=== PATIENT | male | born 1940 | race Caucasian/White ===

== ENCOUNTER 2017-06-13 05:43 | Day surgery (SDC) | payer MEDICARE, BC ==
[2017-06-06 11:21] LABS: MEAN CORPUSCULAR HGB CONC 32.2 % (33.0-36.5); MEAN CORPUSCULAR VOLUME 83.9 FL (78-98); MEAN PLATELET VOLUME 8.1 FL (7.4-10.4); PRE OP HEMATOCRIT 35.5 % (42.0-52.0); PRE OP HEMOGLOBIN 11.4 g/dL (14.0-17.9); PRE OP PLATELET COUNT 204 X10'3 (140-440); RED BLOOD COUNT 4.23 X10'6 (4.70-6.10); RED CELL DISTRIBUTION WIDTH 15.3 % (11.5-14.5)
[2017-06-06 11:28] LABS: CLARITY,URINE CLEAR (Clear); COLOR,URINE YELLOW (Yellow); GLUCOSE, URINE NEGATIVE (Neg); KETONES,URINE NEGATIVE (Neg); LEUKOCYTE ESTERASE ,URINE NEGATIVE (Neg); NITRITES, URINE NEGATIVE (Neg); OCCULT BLOOD,URINE LARGE (Neg); PH,URINE 5.5 (4.8-8.0); PROTEIN,URINE 100 mg/dl (Neg); UROBILINOGEN,URINE 0.2 E.U/dL (0.2-1.0)
[2017-06-06 11:31] LABS: UA COLLECTION TYPE NON-SPECIFIED
[2017-06-06 11:37] LABS: HEMOGLOBIN A1C 6.5 % (4.5-6.2)
[2017-06-06 11:38] LABS: ALBUMIN 3.2 G/DL (3.4-5.0); ALBUMIN/GLOBULIN RATIO 0.8 (1.1-1.5); ALKALINE PHOSPHATASE 85 IU/L (46-116); BLOOD UREA NITROGEN 39 MG/DL (7-18); BUN/CREATININE RATIO 8.7 (5.4-32.0); CALCIUM 8.8 MG/DL (8.5-10.1); CHLORIDE 109 MMOL/L (99-107); CREATININE 4.48 MG/DL (0.60-1.10); PRE OP ALT 23 U/L (30-65); PRE OP ANION GAP 11 (8-16); PRE OP AST 18 U/L (10-37); PRE OP BILIRUB, TOTAL 0.4 MG/DL (0.0-1.0); PRE OP GLUCOSE 177 MG/DL (70-104); PRE OP POTASSIUM 4.7 MMOL/L (3.4-5.1); PRE OP SODIUM 144 MMOL/L (135-145); TOTAL CARBON DIOXIDE 24.1 MMOL/L (24-32); TOTAL PROTEIN 7.2 G/DL (6.4-8.2); eGFR 13 ML/MIN
[2017-06-06 11:47] LABS: ANISOCYTOSIS 1+; HYPOCHROMASIA 1+; MICROCYTOSIS 1+; PLATELET ESTIMATE NORMAL; POIKILOCYTOSIS FEW; TOTAL CELLS COUNTED 100
[2017-06-06 11:53] LABS: MUCUS STRANDS FEW /LPF (Neg); SQUAMOUS EPITHELIAL CELL,UR FEW /LPF (FEW)
[2017-06-06 11:58] LABS: BACTERIA,URINE NONE SEEN /HPF (Neg); WBC,URINE 0-4 /HPF (0-4)
[~2017-06-13] VITALS: Ht 177.8 cm; Wt 104.1 kg
[2017-06-13] VITALS (8 sets, daily range): BP systolic 153–201; BP diastolic 88–101
[~2017-06-13 05:43] MED LIST: ASPI-1009 PO; ATOR80TA PO; CHOL100024 PO; CHOL10008 PO; EPOE10003 SQ; INSU100C4 SQ; LANTUS SQ; OMEG1CAP54 PO; OMEP-84 PO; cefazolin/dext.iso 2gm/50ml 50 ML IV ONE; famotidine 20mg tablet PO ONE; ringers solution, lacted 1,000 ML IV SCH
[2017-06-13] MEDS ORDERED: epiNEPHrine 1 mg/ml inj ONE (06:52)
[2017-06-13] MEDS ORDERED: ceFAZolin 1000mg inj ONE (06:52)
[2017-06-13] MEDS ORDERED: heparin sodium, porcine/PF 100unit/ml 5ML syringe ONE ×2 (06:52→06:53)
[2017-06-13] MEDS ORDERED: mupirocin 2% ointment 22GM ONE (06:53)
[2017-06-13] MEDS ORDERED: BUPIVAcaine/PF 2.5 mg/ml (0.25%) 30ml vial ONE (06:53)
[2017-06-13] MEDS ORDERED: sevoflurane 250ml liquid IH ONE (08:10)
[2017-06-13] MEDS ORDERED: midazolam 2 mg/2 ml injection ONE (08:13)
[2017-06-13] MEDS ORDERED: fentaNYL/PF 50MCG/1 ML 2ML syringe ONE (08:13)
[2017-06-13] MEDS ORDERED: rocuronium 10mg/ml inj IV ONE (08:26)
[2017-06-13] MEDS ORDERED: etomidate 2mg/ml inj. ONE (08:30)
[2017-06-13] MEDS ORDERED: ondansetron/PF 4mg/2ml inj ONE (08:44)
[2017-06-13] MEDS ORDERED: ringers solution, lacted 1,000 ML IV SCH (08:51)
[2017-06-13] MEDS ORDERED: labetalol 5mg/ml 20ml inj. IV PRN (08:55)
[2017-06-13] MEDS ORDERED: hydrALAZINE 20mg/ml inj. IV PRN (08:55)
[2017-06-13] MEDS ORDERED: morphine sulfate 8 MG/ML SYRINGE IV PRN ×2 (08:55)
[2017-06-13] MEDS ORDERED: fentaNYL/PF 50MCG/1 ML 2ML syringe IV PRN ×2 (08:55)
[2017-06-13] MEDS ORDERED: ondansetron/PF 4mg/2ml inj IV PRN (08:55)
[2017-06-13] MEDS ORDERED: labetalol 5mg/ml 20ml inj. IV ONE (08:58)
[2017-06-13] MEDS ORDERED: labetalol 20mg/4ml (5mg/ml) syringe IV PRN (09:00)
[2017-06-13] MEDS ORDERED: glycopyrrolate 0.2mg/ml inj ONE (09:09)
== END 2017-06-13 10:40 | disposition home or self-care (01) ==
LOC: PAS 05:43
PROVIDERS: ATTEND Surgery
DX: I12.9 Hypertensive chronic kidney disease with stage 1 through stage 4 chronic kidney disease, or unspecified chronic kidney disease (principal); N18.6 End stage renal disease; E11.22 Type 2 diabetes mellitus with diabetic chronic kidney disease; N40.0 Benign prostatic hyperplasia without lower urinary tract symptoms; I71.4 Abdominal aortic aneurysm, without rupture; G47.30 Sleep apnea, unspecified; E66.3 Overweight; G47.33 Obstructive sleep apnea (adult) (pediatric); Z87.891 Personal history of nicotine dependence; Z98.890 Other specified postprocedural states; Z88.6 Allergy status to analgesic agent; Z90.5 Acquired absence of kidney; Z68.32 Body mass index [BMI] 32.0-32.9, adult; Z79.82 Long term (current) use of aspirin; Z79.4 Long term (current) use of insulin
CPT/HCPCS: 36415; 49324; 80053; 81001; 82948; 83036; 85025; 93005; A6449; C1750; C1758; J0171; J0690; J1642; J2250; J2405; J3010; J3490; J7030; J7120; A7000

== ENCOUNTER 2019-06-30 11:08 | Day surgery (SDC) | payer MEDICARE, BC ==
[~2019-06-30] VITALS: Ht 177.8 cm; Wt 102.6 kg
[~2019-06-30 11:08] MED LIST changes: -cefazolin/dext.iso 2gm/50ml 50 ML IV ONE; -famotidine 20mg tablet PO ONE; -ringers solution, lacted 1,000 ML IV SCH
[2019-06-30 11:40] VITALS: BP 166/108
[2019-06-30] MEDS ORDERED: normal saline 1000ml 1,000 ML IV PRN (11:40)
[2019-06-30] MEDS ORDERED: albumin 25% 100mL bottle x 1 IV PRN (11:40)
[2019-06-30] MEDS ORDERED: DOCU-264 PO (11:49)
[2019-06-30] MEDS ORDERED: INSU100V9 SQ (11:49)
[2019-06-30] MEDS ORDERED: fentaNYL/PF 50MCG/1 ML 2ML syringe IV PRN (13:25)
[2019-06-30] MEDS ORDERED: heparin 1,000 units/ml 10ml inj ICATH ONE (13:25)
[2019-06-30] MEDS ORDERED: midazolam 2 mg/2 ml injection IV PRN (13:25)
[2019-06-30] MEDS ORDERED: LIDOcaine 1%/PF 5ML 10 MG/ML VIAL SQ ONE (13:25)
[2019-06-30] MEDS ORDERED: LIDOcaine 1%/PF 5ML 10 MG/ML VIAL ONE (13:33)
[2019-06-30] MEDS ORDERED: midazolam 2 mg/2 ml injection ONE (13:33)
[2019-06-30] MEDS ORDERED: heparin 1,000unit/ml 10ml vial 10 ML ONE (13:33)
[2019-06-30] MEDS ORDERED: fentaNYL/PF 50MCG/1 ML 2ML syringe ONE (13:33)
[2019-06-30 14:57] VITALS: BP 149/94
[2019-06-30 15:12] VITALS: BP 149/94
[2019-06-30 15:27] VITALS: BP 155/74
[2019-06-30 15:42] VITALS: BP 159/78
== END 2019-06-30 16:05 | disposition home or self-care (01) ==
LOC: SSTAY O 11:08
PROVIDERS: ATTEND Radiology Diagnostic Radiology
DX: E11.22 Type 2 diabetes mellitus with diabetic chronic kidney disease (principal); N18.9 Chronic kidney disease, unspecified; E66.01 Morbid (severe) obesity due to excess calories; Z68.32 Body mass index [BMI] 32.0-32.9, adult; Z79.82 Long term (current) use of aspirin; Z79.4 Long term (current) use of insulin; Z79.899 Other long term (current) drug therapy
CPT/HCPCS: 36558; 76937; 77001; 99152; 99153; C1750; C1769; C1894; J1644; J2250; J3010; J7030; A9270

== ENCOUNTER 2020-03-03 12:30 | Day surgery (SDC) | payer MEDICARE, BC ==
[~2020-03-03] VITALS: Ht 177.8 cm; Wt 99.9 kg
[~2020-03-03 12:30] MED LIST changes: +DOCU-264 PO; -EPOE10003 SQ; +INSU100V9 SQ; -LANTUS SQ
[2020-03-03] MEDS ORDERED: normal saline 1000ml 1,000 ML IV SCH (12:55)
[2020-03-03] MEDS ORDERED: AMIN30LI28 PO (13:40)
[2020-03-03] MEDS ORDERED: LORA10TA7 PO (13:40)
[2020-03-03] MEDS ORDERED: SENN15TA PO (13:40)
[2020-03-03] MEDS ORDERED: CALC0.5C2 PO (13:40)
[2020-03-03] MEDS ORDERED: FURO80TA3 PO (13:40)
[2020-03-03] MEDS ORDERED: FERR28TA PO (13:40)
[2020-03-03] MEDS ORDERED: CALC667T8 PO (13:40)
[2020-03-03 13:42] VITALS: BP 127/73
[2020-03-03] MEDS ORDERED: heparin 1,000unit/ml 10ml vial 10 ML ONE (13:46)
[2020-03-03] MEDS ORDERED: LIDOcaine 1%/PF 5ML 10 MG/ML VIAL ONE (13:46)
[2020-03-03] MEDS ORDERED: midazolam 2 mg/2 ml injection ONE ×2 (13:46→14:09)
[2020-03-03] MEDS ORDERED: fentaNYL/PF 50MCG/1 ML 2ML syringe ONE ×2 (13:47→14:10)
[2020-03-03 14:15] VITALS: BP 127/73
[2020-03-03 14:30] VITALS: BP 131/79
[2020-03-03 14:45] VITALS: BP 116/73
[2020-03-03 15:00] VITALS: BP 116/73
== END 2020-03-03 15:15 | disposition home or self-care (01) ==
LOC: SSTAY O 12:30
PROVIDERS: ATTEND Radiology Diagnostic Radiology
DX: T85.691A Other mechanical complication of intraperitoneal dialysis catheter, initial encounter (principal); E11.22 Type 2 diabetes mellitus with diabetic chronic kidney disease; N18.9 Chronic kidney disease, unspecified; Z85.528 Personal history of other malignant neoplasm of kidney; Z79.899 Other long term (current) drug therapy; Z79.4 Long term (current) use of insulin; Z90.5 Acquired absence of kidney; Y83.8 Other surgical procedures as the cause of abnormal reaction of the patient, or of later complication, without mention of misadventure at the time of the procedure; Y92.89 Other specified places as the place of occurrence of the external cause
CPT/HCPCS: 36558; 76937; 77001; 99152; 99153; C1750; C1769; J1644; J2250; J3010

== ENCOUNTER 2020-03-08 07:11 | Day surgery (SDC) | payer MEDICARE, BC ==
[~2020-03-08] VITALS: Ht 177.8 cm; Wt 97.0 kg
[~2020-03-08 07:11] MED LIST changes: +AMIN30LI28 PO; +CALC0.5C2 PO; +CALC667T8 PO; -CHOL100024 PO; +FERR28TA PO; +FURO80TA3 PO; +LORA10TA7 PO; +SENN15TA PO; +famotidine 20mg tablet PO ONE; +normal saline 1000ml 1,000 ML IV SCH
[2020-03-08] MEDS ORDERED: cefazolin/dext.iso 2gm/50ml 50 ML IV ONE (07:20)
[2020-03-08 08:17] VITALS: BP 141/79
[2020-03-08] MEDS ORDERED: ringers solution, lacted 1,000 ML IV SCH (09:07)
[2020-03-08] MEDS ORDERED: hydrALAZINE 20mg/ml inj. IV PRN (09:10)
[2020-03-08] MEDS ORDERED: morphine 2 MG/ML inj. syringe IV PRN (09:10)
[2020-03-08] MEDS ORDERED: ondansetron/PF 4mg/2ml inj IV PRN (09:10)
[2020-03-08] MEDS ORDERED: labetalol 20mg/4ml (5mg/ml) syringe IV PRN (09:10)
[2020-03-08] MEDS ORDERED: morphine 4 MG/ML inj SYRINge IV PRN (09:10)
[2020-03-08] MEDS ORDERED: fentaNYL/PF 50MCG/1 ML 2ML syringe IV PRN ×2 (09:10)
[2020-03-08 09:12] LABS: PRE OP PARTIAL THROMB. TIME 28 SECONDS (22-32)
[2020-03-08 09:13] LABS: BASOPHILS # (AUTO) 0.1 X10'3 (0-0.2); BASOPHILS % (AUTO) 1.2 % (0-1); EOSINOPHILS # (AUTO) 0.4 X10'3 (0-0.9); EOSINOPHILS % (AUTO) 7.1 % (0-6); LYMPHOCYTES # (AUTO) 0.6 X10'3 (1.1-4.8); MEAN CORPUSCULAR HEMOGLOBIN 30.4 PG (27.0-31.0); MEAN CORPUSCULAR HGB CONC 33.4 g/dL (33.0-36.5); MEAN CORPUSCULAR VOLUME 90.9 FL (78-98); MONOCYTES # (AUTO) 0.6 X10'3 (0-0.9); MONOCYTES % (AUTO) 10.6 % (2-12); NEUTROPHILS # (AUTO) 4.2 X10'3 (1.8-7.7); NEUTROPHILS % (AUTO) 71.1 % (42-75); PRE OP HEMATOCRIT 32.8 % (42.0-52.0); PRE OP PLATELET COUNT 290 X10'3 (140-440); RED CELL DISTRIBUTION WIDTH 13.7 % (11.5-14.5)
[2020-03-08 09:18] LABS: ALANINE AMINOTRANSFERASE 49 U/L (12-78); ALBUMIN 2.8 G/DL (3.4-5.0); ALBUMIN/GLOBULIN RATIO 0.7 (1.1-1.5); ALKALINE PHOSPHATASE 88 IU/L (46-116); ANION GAP 8 (8-16); ASPARTATE AMINO TRANSFERASE 30 U/L (10-37); BILIRUBIN,TOTAL 0.3 MG/DL (0.1-1.0); BLOOD UREA NITROGEN 20 MG/DL (7-18); BUN/CREATININE RATIO 4.2 (5.4-32.0); CALCIUM 9.3 MG/DL (8.5-10.1); CHLORIDE 101 MMOL/L (99-107); CREATININE 4.78 MG/DL (0.60-1.10); GLUCOSE 147 MG/DL (70-104); POTASSIUM 3.8 MMOL/L (3.5-5.1); SODIUM 139 MMOL/L (135-145); TOTAL CARBON DIOXIDE 30.3 MMOL/L (24-32); eGFR 12 ML/MIN
[2020-03-08 09:19] LABS: PRE OP HEMOGLOBIN 10.9 g/dL (14.0-17.9)
[2020-03-08 09:57] LABS: TOTAL CELLS COUNTED 100
[2020-03-08 09:59] LABS: LARGE PLATELETS FEW; PLATELET ESTIMATE NORMAL
[2020-03-08] MEDS ORDERED: midazolam 2 mg/2 ml injection ONE (10:35)
[2020-03-08] MEDS ORDERED: fentaNYL/PF 50MCG/1 ML 2ML syringe ONE (10:35)
[2020-03-08] MEDS ORDERED: BUPIVAcaine/PF 2.5 mg/ml (0.25%) 30ml vial ONE (10:49)
[2020-03-08] MEDS ORDERED: mupirocin 2% ointment 22GM ONE (10:49)
[2020-03-08] MEDS ORDERED: ceFAZolin 1000mg inj ONE (10:49)
[2020-03-08] MEDS ORDERED: heparin sodium, porcine/PF 100unit/ml 5ML syringe ONE (10:49)
[2020-03-08] MEDS ORDERED: LIDOcaine 1% 30ml preserv. free vial ONE (10:52)
[2020-03-08] MEDS ORDERED: rocuronium 10mg/ml inj IV ONE (11:18)
[2020-03-08] MEDS ORDERED: LIDOcaine 2% (20mg/ml) 5ml vial ONE (11:19)
[2020-03-08] MEDS ORDERED: propofol inj 20 ML IV ONE (11:19)
[2020-03-08 11:36] VITALS: BP 116/77
--- NOTE | 2020-03-08 11:36 | NUR ---
Received from OR via DE[facility] , accompanied by Anesthesiologist DARREN and report given by Anesthesiolgist. PATIENT WITH 22G PIV IN LEFT UE RUNNIGN NS AT 10. 2 ABDOMINAL BANDAIDS PRESENT THAT ARE CDI. DENIES PAIN. 10L MASK ON WITH 100% SATURATIONS. Addendum: 03/08/20 at 1151 by Marquis Resendez RN, RN Amended: Links added.
[2020-03-08 11:46] VITALS: BP 121/78
[2020-03-08 11:56] VITALS: BP 124/74
[2020-03-08 12:06] VITALS: BP 121/82
[2020-03-08 12:16] VITALS: BP 118/81
--- NOTE | 2020-03-08 12:26 | NUR ---
D/C FROM PACU PATIENT AND FAMILY AND THEY HAVE VERBALIZED UNDERSTANDING, OPPORTUNITY TO ASK QUESTIONS GIVEN AND PATIENT COMFORTABLE WITH DC. IV TAKEN OUT WITHOUT COMPLICATION. PATIENT HAS MET ALL DC CRITERIA FOR DC HOME. I HAVE REVIEWED D/C INSTRUCTIONS WITH OUT VIA WHEELCHAIR WHERE PATIENT WAS TAKEN HOME WITH ALL BELONGINGS. FAMILY GAVE PATIENT TRANSPORT HOME. VSS, DENIES PAIN AND DRESSING (BANDAIDS X2 TO ABDOMEN) ARE CDI. Addendum: 03/08/20 at 1229 by Maqruis Fisher - ANURAG OSBORN Amended: Links added.
== END 2020-03-08 11:26 | disposition home or self-care (01) ==
LOC: PAS 07:11
PROVIDERS: ATTEND Surgery
DX: T85.691A Other mechanical complication of intraperitoneal dialysis catheter, initial encounter (principal); N18.6 End stage renal disease; Y83.8 Other surgical procedures as the cause of abnormal reaction of the patient, or of later complication, without mention of misadventure at the time of the procedure; Y92.89 Other specified places as the place of occurrence of the external cause; Z72.89 Other problems related to lifestyle; Z87.891 Personal history of nicotine dependence; E11.9 Type 2 diabetes mellitus without complications; Z90.49 Acquired absence of other specified parts of digestive tract; Z90.5 Acquired absence of kidney; Z98.890 Other specified postprocedural states; Z79.4 Long term (current) use of insulin; Z79.82 Long term (current) use of aspirin; Z79.899 Other long term (current) drug therapy
CPT/HCPCS: 36415; 49422; 80053; 85007; 85025; 85610; 85730; 93005; J0690; J1642; J2001; J2250; J2704; J3010; J3490; J7030; A4215; A4618; A7000

== ENCOUNTER 2020-03-29 08:08 | Day surgery (SDC) | payer MEDICARE, BC ==
[2020-03-17 13:50] LABS: BASOPHILS % (AUTO) 0.4 % (0-1); EOSINOPHILS # (AUTO) 0.5 X10'3 (0-0.9); EOSINOPHILS % (AUTO) 7.7 % (0-6); LYMPHOCYTES # (AUTO) 0.7 X10'3 (1.1-4.8); LYMPHOCYTES % (AUTO) 11.2 % (21-51); MEAN CORPUSCULAR HEMOGLOBIN 29.9 PG (27.0-31.0); MEAN CORPUSCULAR HGB CONC 33.3 g/dL (33.0-36.5); MEAN CORPUSCULAR VOLUME 89.7 FL (78-98); MEAN PLATELET VOLUME 8.2 FL (7.4-10.4); MONOCYTES # (AUTO) 0.8 X10'3 (0-0.9); MONOCYTES % (AUTO) 13.2 % (2-12); NEUTROPHILS # (AUTO) 4.2 X10'3 (1.8-7.7); NEUTROPHILS % (AUTO) 67.5 % (42-75); PRE OP HEMOGLOBIN 11.3 g/dL (14.0-17.9); PRE OP PLATELET COUNT 241 X10'3 (140-440); RED BLOOD COUNT 3.79 X10'6 (4.70-6.10)
[2020-03-17 14:03] LABS: PRE OP INR 1.1 INR; PRE OP PROTIME 11.2 SECONDS (9.0-12.0)
[2020-03-17 14:04] LABS: ALBUMIN 3.3 G/DL (3.4-5.0); ALBUMIN/GLOBULIN RATIO 0.8 (1.1-1.5); ALKALINE PHOSPHATASE 93 IU/L (46-116); BLOOD UREA NITROGEN 25 MG/DL (7-18); BUN/CREATININE RATIO 4.8 (5.4-32.0); CALCIUM 9.9 MG/DL (8.5-10.1); CHLORIDE 100 MMOL/L (99-107); CREATININE 5.26 MG/DL (0.60-1.10); PRE OP ALT 19 U/L (30-65); PRE OP ANION GAP 8 (8-16); PRE OP AST 21 U/L (10-37); PRE OP BILIRUB, TOTAL 0.5 MG/DL (0.0-1.0); PRE OP GLUCOSE 92 MG/DL (70-104); PRE OP POTASSIUM 3.6 MMOL/L (3.4-5.1); PRE OP SODIUM 141 MMOL/L (135-145); TOTAL CARBON DIOXIDE 32.8 MMOL/L (24-32); TOTAL PROTEIN 7.5 G/DL (6.4-8.2); eGFR 11 ML/MIN
[2020-03-17 14:19] LABS: CLARITY,URINE CLOUDY (Clear); COLOR,URINE YELLOW (Yellow); GLUCOSE, URINE NEGATIVE (Neg); KETONES,URINE TRACE mg/dl (Neg); LEUKOCYTE ESTERASE ,URINE SMALL (Neg); NITRITES, URINE NEGATIVE (Neg); OCCULT BLOOD,URINE LARGE (Neg); PROTEIN,URINE 100 mg/dl (Neg); UROBILINOGEN,URINE 0.2 E.U/dL (0.2-1.0)
[2020-03-17 14:37] LABS: UA COLLECTION TYPE CLN CATCH MIDSTREAM
[2020-03-17 14:41] LABS: BACTERIA,URINE 2+ /HPF (Neg); HYALINE CASTS 0-3 /LPF (NEGATIVE); MUCUS STRANDS MODERATE /LPF (Neg); SQUAMOUS EPITHELIAL CELL,UR FEW /LPF (FEW)
[~2020-03-29] VITALS: Ht 177.8 cm; Wt 99.8 kg
[2020-03-29] VITALS (11 sets, daily range): BP systolic 92–171; BP diastolic 66–100
[~2020-03-29 08:08] MED LIST changes: -AMIN30LI28 PO; -LORA10TA7 PO; -SENN15TA PO; +ceFAZolin 2gm in dextrose, iso 50 ML IV ONE; +ringers solution, lacted 1,000 ML IV SCH
[2020-03-29] MEDS ORDERED: heparin sodium, porcine/PF 100unit/ml 5ML syringe ONE (11:31)
[2020-03-29] MEDS ORDERED: mupirocin 2% ointment 22GM ONE (11:31)
[2020-03-29] MEDS ORDERED: BUPIVAcaine/PF 2.5 mg/ml (0.25%) 30ml vial ONE (11:31)
[2020-03-29] MEDS ORDERED: ringers solution, lacted 1,000 ML IV SCH (11:40)
[2020-03-29] MEDS ORDERED: morphine 2 MG/ML inj. syringe IV PRN (11:40)
[2020-03-29] MEDS ORDERED: proCHLORperazine 10 MG/2 ml inj IV PRN (11:40)
[2020-03-29] MEDS ORDERED: morphine 4 MG/ML inj SYRINge IV PRN (11:40)
[2020-03-29] MEDS ORDERED: meperidine/PF 25mg/ml syringe IV PRN ×3 (11:40)
[2020-03-29] MEDS ORDERED: ondansetron/PF 4mg/2ml inj IV PRN (11:40)
[2020-03-29] MEDS ORDERED: fentaNYL/PF 50MCG/1 ML 2ML syringe ONE (11:44)
[2020-03-29] MEDS ORDERED: propofol inj 20 ML IV ONE (11:45)
[2020-03-29] MEDS ORDERED: rocuronium 10mg/ml inj IV ONE (11:45)
[2020-03-29] MEDS ORDERED: midazolam 2 mg/2 ml injection ONE (11:45)
[2020-03-29] MEDS ORDERED: sevoflurane 250ml liquid IH ONE (11:48)
[2020-03-29] MEDS ORDERED: neostigmine methylsulfate 1 MG/ML 10ml vial ONE (11:48)
[2020-03-29] MEDS ORDERED: glycopyrrolate 0.2mg/ml inj ONE (11:48)
[2020-03-29] MEDS ORDERED: ePHEDrine 50MG/ML INJ. ONE (12:08)
--- NOTE | 2020-03-29 12:44 | NUR ---
Received from OR via mia, accompanied by Anesthesiologist Hilaria and report given by Anesthesiolgist. Pt not yet responsive, BP high but MD states he would prefer it to run high, parameters given not to treat at thsi time. All other VS WNL. IVF at 20cc/hr to right hand. Left lower abdomen dressed with two bandids either side CDI.
[2020-03-29] MEDS ORDERED: hydrALAZINE 20mg/ml inj. IV ONE (13:08)
[2020-03-29] MEDS ORDERED: HYDROcodone/acetaminophen 10/325mg tab PO ONE (13:40)
--- NOTE | 2020-03-29 14:14 | NUR ---
Pt discharged to vehicle be wheelchair without incident after IV dc'd. All DC instructions given to patient and over the phone, both verbalized understanding. Pt knows to still get HD in clinic tomorrow and follow up with Dr Laird in one week. Dressings Remain CDI. Pt states pain tolerable. All belongings returned to patient.
== END 2020-03-29 14:14 | disposition home or self-care (01) ==
LOC: PAS 08:08
PROVIDERS: ATTEND Surgery
DX: E11.22 Type 2 diabetes mellitus with diabetic chronic kidney disease (principal); N18.9 Chronic kidney disease, unspecified; K21.9 Gastro-esophageal reflux disease without esophagitis; Z20.828 Contact with and (suspected) exposure to other viral communicable diseases; Z87.891 Personal history of nicotine dependence; Z79.82 Long term (current) use of aspirin; Z79.4 Long term (current) use of insulin; Z79.899 Other long term (current) drug therapy; Z88.8 Allergy status to other drugs, medicaments and biological substances; Z90.5 Acquired absence of kidney; Z90.49 Acquired absence of other specified parts of digestive tract; Z98.890 Other specified postprocedural states; Z85.528 Personal history of other malignant neoplasm of kidney; Z99.2 Dependence on renal dialysis; Z82.49 Family history of ischemic heart disease and other diseases of the circulatory system
CPT/HCPCS: 36415; 49324; 71046; 80053; 81001; 82948; 85025; 85610; 85730; 87088; 87635; C1750; J0360; J1642; J2175; J2250; J2704; J2710; J3010; J3490; J7030; J7120; A4215; A4618; A6402; A6449; A7000

== ENCOUNTER 2020-04-26 06:36 | Day surgery (SDC) | payer MEDICARE, BC ==
[2020-04-26] VITALS (8 sets, daily range): BP systolic 118–150; BP diastolic 71–90
[~2020-04-26] VITALS: Ht 177.8 cm; Wt 95.0 kg
[~2020-04-26 06:36] MED LIST changes: -ceFAZolin 2gm in dextrose, iso 50 ML IV ONE; -normal saline 1000ml 1,000 ML IV SCH
[2020-04-26 08:12] LABS: BASOPHILS # (AUTO) 0.1 X10'3 (0-0.2); BASOPHILS % (AUTO) 1.3 % (0-1); EOSINOPHILS # (AUTO) 0.4 X10'3 (0-0.9); EOSINOPHILS % (AUTO) 9.3 % (0-6); LYMPHOCYTES # (AUTO) 0.5 X10'3 (1.1-4.8); LYMPHOCYTES % (AUTO) 11.1 % (21-51); MEAN CORPUSCULAR HEMOGLOBIN 30.1 PG (27.0-31.0); MEAN CORPUSCULAR HGB CONC 33.2 g/dL (33.0-36.5); MEAN CORPUSCULAR VOLUME 90.6 FL (78-98); MEAN PLATELET VOLUME 7.9 FL (7.4-10.4); MONOCYTES # (AUTO) 0.5 X10'3 (0-0.9); MONOCYTES % (AUTO) 9.8 % (2-12); NEUTROPHILS # (AUTO) 3.3 X10'3 (1.8-7.7); NEUTROPHILS % (AUTO) 68.5 % (42-75); PRE OP HEMATOCRIT 34.9 % (42.0-52.0); PRE OP HEMOGLOBIN 11.6 g/dL (14.0-17.9); PRE OP PLATELET COUNT 206 X10'3 (140-440); RED BLOOD COUNT 3.85 X10'6 (4.70-6.10); RED CELL DISTRIBUTION WIDTH 14.5 % (11.5-14.5)
[2020-04-26 08:34] LABS: ALBUMIN 3.3 G/DL (3.4-5.0); ALBUMIN/GLOBULIN RATIO 0.8 (1.1-1.5); ALKALINE PHOSPHATASE 109 IU/L (46-116); BLOOD UREA NITROGEN 18 MG/DL (7-18); BUN/CREATININE RATIO 3.4 (5.4-32.0); CALCIUM 9.3 MG/DL (8.5-10.1); CHLORIDE 103 MMOL/L (99-107); CREATININE 5.35 MG/DL (0.60-1.10); PRE OP ALT 16 U/L (30-65); PRE OP ANION GAP 6 (8-16); PRE OP AST 15 U/L (10-37); PRE OP BILIRUB, TOTAL 0.4 MG/DL (0.0-1.0); PRE OP GLUCOSE 147 MG/DL (70-104); PRE OP POTASSIUM 3.8 MMOL/L (3.4-5.1); PRE OP SODIUM 140 MMOL/L (135-145); TOTAL PROTEIN 7.2 G/DL (6.4-8.2); eGFR 10 ML/MIN
[2020-04-26] MEDS ORDERED: fentaNYL/PF 50MCG/1 ML 2ML syringe ONE (09:01)
[2020-04-26] MEDS ORDERED: midazolam 2 mg/2 ml injection ONE (09:01)
[2020-04-26] MEDS ORDERED: propofol inj 20 ML IV ONE (09:03)
[2020-04-26] MEDS ORDERED: rocuronium 10mg/ml inj IV ONE (09:03)
[2020-04-26] MEDS ORDERED: LIDOcaine 2% (20mg/ml) 5ml vial ONE (09:03)
[2020-04-26] MEDS ORDERED: ceFAZolin 1000mg inj ONE ×3 (09:15→09:23)
[2020-04-26] MEDS ORDERED: ondansetron/PF 4mg/2ml inj ONE ×2 (09:16→09:17)
[2020-04-26] MEDS ORDERED: heparin sodium, porcine/PF 100unit/ml 5ML syringe ONE (09:23)
[2020-04-26] MEDS ORDERED: BUPIVAcaine/PF 2.5 mg/ml (0.25%) 30ml vial ONE (09:23)
[2020-04-26] MEDS ORDERED: mupirocin 2% ointment 22GM ONE (09:24)
[2020-04-26] MEDS ORDERED: fentaNYL/PF 50MCG/1 ML 2ML syringe IV PRN ×2 (09:45)
[2020-04-26] MEDS ORDERED: morphine 2 MG/ML inj. syringe IV PRN (09:45)
[2020-04-26] MEDS ORDERED: ondansetron/PF 4mg/2ml inj IV PRN (09:45)
[2020-04-26] MEDS ORDERED: ringers solution, lacted 1,000 ML IV SCH (09:45)
[2020-04-26] MEDS ORDERED: hydrALAZINE 20mg/ml inj. IV PRN (09:45)
[2020-04-26] MEDS ORDERED: morphine 4 MG/ML inj SYRINge IV PRN (09:45)
[2020-04-26] MEDS ORDERED: labetalol 20mg/4ml (5mg/ml) syringe IV PRN (09:45)
--- NOTE | 2020-04-26 10:15 | NUR ---
Received from OR via BED, accompanied by Anesthesiologist DR BANKS--- and report given by Anesthesiolgist. PATIENT A&OX4, DENIES PAIN, V/S WNL, NEUROVASCULAR CHECKS INTACT, 20G PIV RUE, SCD ON, PD CATH LAp sites cdi w/ bandaids
--- NOTE | 2020-04-26 11:15 | NUR ---
PATIENT A&OX4, DENIES PAIN, V/S WNL, NEUROVASCULAR CHECKS INTACT, 20G PIV RUE D/C, SCD OFF, PD CATH LAp sites cdi w/ bandaids. I HAVE REVIEWED D/C INSTRUCTIONS WITH PATIENT AND FAMILY AND THEY HAVE VERBALIZED UNDERSTANDING. PATIENT D/C HOME WITH ALL BELONGINGS AND FAMILY GAVE TRANSPORT HOME.PATIENT OFFERED MASK BUT REFUSED TO WEAR IT AT UPON D/C.
== END 2020-04-26 11:15 | disposition home or self-care (01) ==
LOC: PAS 06:36
PROVIDERS: ATTEND Surgery
DX: T85.691A Other mechanical complication of intraperitoneal dialysis catheter, initial encounter (principal); E11.9 Type 2 diabetes mellitus without complications; Z90.49 Acquired absence of other specified parts of digestive tract; Z98.890 Other specified postprocedural states; Z88.8 Allergy status to other drugs, medicaments and biological substances; Z87.891 Personal history of nicotine dependence; Z79.4 Long term (current) use of insulin; Z79.899 Other long term (current) drug therapy; Z82.49 Family history of ischemic heart disease and other diseases of the circulatory system; Y83.8 Other surgical procedures as the cause of abnormal reaction of the patient, or of later complication, without mention of misadventure at the time of the procedure; Y92.89 Other specified places as the place of occurrence of the external cause
CPT/HCPCS: 36415; 49325; 80053; 82948; 85025; C1769; J0690; J1642; J2001; J2250; J2405; J2704; J3010; J3490; A4215; A4618; A6402; A7000; J7120

== ENCOUNTER 2022-07-01 11:31 | Day surgery (SDC) | payer MEDICARE, BC ==
[~2022-07-01] VITALS: Ht 177.8 cm; Wt 82.4 kg
[~2022-07-01 11:31] MED LIST changes: -DOCU-264 PO; +DOCU-323 PO; -famotidine 20mg tablet PO ONE; -ringers solution, lacted 1,000 ML IV SCH
[2022-07-01 11:55] VITALS: BP 145/78
[2022-07-01] MEDS ORDERED: normal saline 1000ml 1,000 ML IV PRN (11:55)
[2022-07-01] MEDS ORDERED: BISA-155 PO (12:03)
[2022-07-01] MEDS ORDERED: SEMA2PEN SQ (12:03)
[2022-07-01] MEDS ORDERED: POLY17PO10 PO (12:03)
[2022-07-01 12:29] LABS: BASOPHILS # (AUTO) 0.1 X10'3 (0-0.2); BASOPHILS % (AUTO) 1.2 % (0-1); EOSINOPHILS # (AUTO) 0.2 X10'3 (0-0.9); EOSINOPHILS % (AUTO) 3.5 % (0-6); HEMATOCRIT 36.6 % (42.0-52.0); HEMOGLOBIN 11.7 g/dl (14.0-17.9); LYMPHOCYTES # (AUTO) 0.5 X10'3 (1.1-4.8); LYMPHOCYTES % (AUTO) 8.4 % (21-51); MEAN CORPUSCULAR HEMOGLOBIN 28.5 PG (27.0-31.0); MEAN CORPUSCULAR VOLUME 89.1 FL (78-98); MEAN PLATELET VOLUME 7.8 FL (7.4-10.4); MONOCYTES # (AUTO) 0.5 X10'3 (0-0.9); NEUTROPHILS # (AUTO) 4.6 X10'3 (1.8-7.7); NEUTROPHILS % (AUTO) 78.9 % (42-75); PLATELET COUNT 214 X10'3 (140-440); RED BLOOD COUNT 4.11 X10'6 (4.70-6.10); RED CELL DISTRIBUTION WIDTH 14.8 % (11.5-14.5); WHITE BLOOD COUNT 5.8 X10'3 (4.5-11.0)
[2022-07-01] MEDS ORDERED: heparin 1,000unit/ml 10ml vial 10 ML ONE (14:33)
[2022-07-01] MEDS ORDERED: diphenhydrAMINE 50 mg/ml inj ONE (14:33)
[2022-07-01] MEDS ORDERED: LIDOcaine 1% 30ml preserv. free vial ONE (14:34)
[2022-07-01] MEDS ORDERED: fentaNYL/PF 50MCG/1 ML 2ML syringe ONE (14:34)
[2022-07-01] MEDS ORDERED: ondansetron/PF 4mg/2ml inj ONE (14:50)
[2022-07-01 15:15] VITALS: BP 179/104
[2022-07-01 15:30] VITALS: BP 174/110
[2022-07-01 15:45] VITALS: BP 186/103
== END 2022-07-01 15:55 | disposition home or self-care (01) ==
LOC: SSTAY O 11:31
PROVIDERS: ATTEND Radiology Vascular & Interventional Radiology
DX: N18.9 Chronic kidney disease, unspecified (principal); Z79.899 Other long term (current) drug therapy; Z79.4 Long term (current) use of insulin; Z79.82 Long term (current) use of aspirin
CPT/HCPCS: 36415; 36558; 76937; 77001; 82948; 85025; C1750; C1894; J1200; J1644; J2405; J3010; J3490; J7030; A4620; A9270

== ENCOUNTER 2022-07-26 17:00 | Emergency (ER) | payer MEDICARE, BC ==
[~2022-07-26] VITALS: Ht 177.8 cm; Wt 83.2 kg
[~2022-07-26 17:00] MED LIST changes: -ASPI-1009 PO; -ATOR80TA PO; +BISA-155 PO; -CALC0.5C2 PO; -CALC667T8 PO; -DOCU-323 PO; -FERR28TA PO; -FURO80TA3 PO; -INSU100C4 SQ; -OMEG1CAP54 PO; +POLY17PO10 PO; +SEMA2PEN SQ
[2022-07-26 18:37] LABS: BASOPHILS % (AUTO) 0.6 % (0-1); EOSINOPHILS # (AUTO) 0.2 X10'3 (0-0.9); EOSINOPHILS % (AUTO) 2.5 % (0-6); HEMATOCRIT 36.2 % (42.0-52.0); HEMOGLOBIN 11.8 g/dl (14.0-17.9); LYMPHOCYTES # (AUTO) 0.4 X10'3 (1.1-4.8); LYMPHOCYTES % (AUTO) 5.7 % (21-51); MEAN CORPUSCULAR HEMOGLOBIN 28.8 PG (27.0-31.0); MEAN CORPUSCULAR HGB CONC 32.7 g/dL (33.0-36.5); MEAN CORPUSCULAR VOLUME 88.2 FL (78-98); MEAN PLATELET VOLUME 7.7 FL (7.4-10.4); MONOCYTES # (AUTO) 0.7 X10'3 (0-0.9); MONOCYTES % (AUTO) 8.3 % (2-12); NEUTROPHILS # (AUTO) 6.5 X10'3 (1.8-7.7); NEUTROPHILS % (AUTO) 82.9 % (42-75); PLATELET COUNT 211 X10'3 (140-440); RED CELL DISTRIBUTION WIDTH 13.9 % (11.5-14.5); WHITE BLOOD COUNT 7.8 X10'3 (4.5-11.0)
[2022-07-26 18:46] LABS: ALANINE AMINOTRANSFERASE 14 U/L (12-78); ALBUMIN 3.4 G/DL (3.4-5.0); ALBUMIN/GLOBULIN RATIO 0.9 (1.1-1.5); ALKALINE PHOSPHATASE 106 IU/L (46-116); ANION GAP 8 (8-16); ASPARTATE AMINO TRANSFERASE 15 U/L (10-37); BILIRUBIN,TOTAL 0.4 MG/DL (0.1-1.0); CALCIUM 9.8 MG/DL (8.5-10.1); CHLORIDE 100 MMOL/L (99-107); GLUCOSE 158 MG/DL (70-104); POTASSIUM 4.4 MMOL/L (3.5-5.1); SODIUM 137 MMOL/L (135-145); TOTAL CARBON DIOXIDE 29.3 MMOL/L (24-32); TOTAL PROTEIN 7.3 G/DL (6.4-8.2); eGFR 16 ML/MIN
[2022-07-26] MEDS ORDERED: ondansetron 4mg rapidly disintigrating tab PO ONE (19:05)
[2022-07-26 19:07] LABS: BLOOD UREA NITROGEN 15 MG/DL (7-18); BUN/CREATININE RATIO 3.8 (5.4-32.0); CREATININE 3.73 MG/DL (0.60-1.10)
[2022-07-26 19:13] VITALS: BP 122/80
== END 2022-07-26 19:27 | disposition home or self-care (01) ==
LOC: ER 17:00
DX: I95.3 Hypotension of hemodialysis (principal); R55 Syncope and collapse; E78.00 Pure hypercholesterolemia, unspecified; F03.90 Unspecified dementia, unspecified severity, without behavioral disturbance, psychotic disturbance, mood disturbance, and anxiety; E11.9 Type 2 diabetes mellitus without complications; Z87.442 Personal history of urinary calculi; Z88.6 Allergy status to analgesic agent; Z79.899 Other long term (current) drug therapy; Z79.4 Long term (current) use of insulin
CPT/HCPCS: 36415; 80053; 82948; 85025; 93005; 99284; 99285